=== PATIENT | male | born 1980 | race African-American/Black ===

== ENCOUNTER 2017-12-02 18:25 | Emergency (ER) | payer BC ==
[2017-12-02] MEDS ORDERED: NORMAL SALINE 1000 ML 1,000 ML IV PRN (18:40)
[2017-12-02] MEDS ORDERED: LORAZEPAM INJ 2 MG/1 ML VIAL IV ONE (18:41)
[2017-12-02] MEDS ORDERED: LEVETIRACETAM 1500 MG/NACL-ISO 1,500 MG/100 ML RTUPB IV ONE (18:41)
--- NOTE | 2017-12-02 18:43 | ER Document Report ---
ED General - General Chief Complaint: Seizure Stated Complaint: POSSIBLE SEIZURE Time Seen by Provider: 12/02/17 18:32 Mode of Arrival: Medic Information source: Patient Notes: This is a 37-year-old man with a history of TBI with seizures, hypertension, diabetes who is brought to the ER after 2 seizures while he was at a friend's house. Patient states he has been out of his Keppra for 3 days. He denies any fever, chills, recent illnesses. He denies abdominal pain, chest pain or dysuria. TRAVEL OUTSIDE OF THE [place] IN LAST 30 DAYS: No - HPI Onset: Just prior to arrival Onset/Duration: Gradual Quality of pain: No pain Severity: None Pain Level: Denies Associated symptoms: denies: Chest pain, Fever, Shortness of breath Exacerbated by: Denies Relieved by: Denies Similar symptoms previously: Yes Recently seen / treated by doctor: No - Related Data Allergies/Adverse Reactions: petrolatum,white [From Petroleum Jelly] Allergy (Verified 11/02/15 09:28) Past Medical History - General Information source: Patient - Social History Smoking Status: Never Smoker Cigarette use (# per day): No Chew tobacco use (# tins/day): No Frequency of alcohol use: None Drug Abuse: Marijuana Lives with: Family Family History: DM. denies: Arthritis, CAD, CVA, Hyperlipidemia, Hypertension, Malignancy, Thyroid Disfunction - Past Medical History Cardiac Medical History: Reports: Hx Hypertension Pulmonary Medical History: Reports: Hx Asthma Neurological Medical History: Reports: Hx Seizures Endocrine Medical History: Reports: Hx Diabetes Mellitus Type 2 Psychiatric Medical History: Reports: Hx Depression - Immunizations Hx Diphtheria, Pertussis, Tetanus Vaccination: Yes Review of Systems - Review of Systems Notes: Review of systems: Constitutional: Denies fever, chills. EENT: Denies ear pain, sinus tenderness, throat pain, throat swelling. Cardiovascular: Denies chest pain, palpitations, dyspnea or edema. Respiratory: Denies wheezing, cough, hemoptysis. Abdomen: Denies abdominal pain, nausea, vomiting, diarrhea. Denies BRBPR or melena. Genitourinary: Denies dysuria, pyuria, hematuria, flank pain. Musculoskeletal: denies joint pain or swelling, denies back pain. Neurologic: See H&P Skin: Denies rash, lesions. Physical Exam - Vital signs Vitals: Temp 98.6 F 12/02/17 18:39 Notes: Physical exam: GENERAL: 37-year-old man, alert and oriented 3, no acute distress HEAD: Atraumatic, normocephalic. EYES: Pupils equal round and reactive to light, extraocular movements intact, sclera anicteric, conjunctiva are normal. ENT: TMs normal, nares patent, oropharynx clear without exudates. Moist mucous membranes. NECK: Normal range of motion, supple without obvious mass or JVD. LUNGS: Breath sounds clear to auscultation bilaterally and equal. No wheezes rales or rhonchi. HEART: Regular rate and rhythm without murmurs, rubs or gallops. ABDOMEN: Soft, normoactive bowel sounds. No tenderness to palpation. No guarding, no rebound. No masses appreciated. EXTREMITIES: Normal range of motion, no pitting or edema. No clubbing or cyanosis. NEUROLOGICAL: Cranial nerves II through XII grossly intact. Normal speech, moving all extremities. PSYCH: Normal mood, normal affect. SKIN: Warm, Dry, normal turgor, no rashes or lesions noted. Course - Re-evaluation Re-evalutation: 12/02/17 23:13 Patient observed several hours. He is remained stable. His mother and state that he did have an absence type seizure while he was not in the room. The patient looks perfectly fine now. He was given Ativan initially on arrival. He was given a load of IV Keppra. The patient's labs look very good. I gave him some oral Keppra to take home with him for the morning and I will give him a prescription. I will also give him a list of doctors affiliated with this hospital to follow-up with. - Vital Signs Vital signs: Temp Pulse Resp BP Pulse Ox 98.6 F 8 L 134/87 H 99 12/02/17 18:39 12/02/17 22:30 12/02/17 22:31 12/02/17 22:31 - Laboratory Result Diagrams: 12/02/17 18:35 12/02/17 18:35 Laboratory results interpreted by me: 18 12/02/17 18:35 18:35 RBC 5.59 H RDW 14.6 H Carbon Dioxide 18 L Albumin 5.1 H Discharge - Discharge Clinical Impression: Seizure disorder Condition: Stable Disposition: HOME, SELF-CARE Instructions: Seizure, Known Epileptic ([facility]) Additional Instructions: As we discussed, your electrolytes and kidney function tests were normal. I would like you to take the 1 g of Keppra in the morning. 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 Continue all other medicines. Return to the ER for any problems per If you are unable to follow-up with your primary care doctor, you can call one of the primary care doctors below that are affiliated with the hospital. Primary Care Doctor's affiliated with [facility]: Dr. David Haas [address], [place] [address] [phone] Dr Crum Address: [address] [place] [address] , [place] [address] Dr Villavicencio Address: [address] [place] [address] [place] [address] Prescriptions: Levetiracetam [Keppra 500 mg Tablet] 1,000 mg PO Q12 #60 tablet Referrals: DIPTI DO MD [Primary Care Provider] - Follow up as needed
[2017-12-02] MEDS ORDERED: SODIUM CHLORIDE IV ONE (18:57)
[2017-12-02] MEDS ORDERED: LEVETIRACETAM IV ONE (18:57)
[2017-12-02] MEDS ORDERED: [UNRECOGNIZED DRUG - OTHER] IV ONE (18:57)
[2017-12-02 19:09] LABS: ABSOLUTE EOSINOPHILS # (AUTO) 0.1 10^3/uL (0.0-0.6); ABSOLUTE LYMPHOCYTES (AUTO) 2.7 10^3/uL (0.5-4.7); ABSOLUTE MONOCYTES (AUTO) 0.6 10^3/uL (0.1-1.4); ABSOLUTE NEUT (AUTO) 5.4 10^3/uL (1.7-8.2); BASOPHILS % (AUTO) 0.4 % (0-2); HEMATOCRIT 45.8 % (37.9-51.0); HEMOGLOBIN 15.1 g/dL (13.5-17.0); LYMPHOCYTES % (AUTO) 30.5 % (13-45); MEAN CORPUSCULAR VOLUME 82 fl (80-97); MONOCYTES % (AUTO) 6.7 % (3-13); PLATELET COUNT 240 10^3/uL (150-450); RED BLOOD COUNT 5.59 10^6/uL (4.35-5.55); RED CELL DISTRIBUTION WIDTH 14.6 % (11.5-14.0); SEGMENTED NEUTROPHILS % (AUTO) 61.4 % (42-78); TOTAL CELLS COUNTED % (AUTO) 100 %; WHITE BLOOD COUNT 8.7 10^3/uL (4.0-10.5)
[2017-12-02] MEDS ORDERED: LEVETIRACETAM 1000 MG/NACL-ISO 1,000 MG/100 ML RTUPB IV ONE (19:15)
[2017-12-02 19:31] LABS: ALANINE AMINOTRANSFERASE 30 U/L (21-72); ALBUMIN 5.1 g/dL (3.5-5.0); ALKALINE PHOSPHATASE 49 U/L (38-126); ASPARTATE AMINO TRANSFERASE 26 U/L (17-59); BILIRUBIN,DIRECT 0.3 mg/dL (0.0-0.4); BILIRUBIN,TOTAL 0.3 mg/dL (0.2-1.3); BLOOD UREA NITROGEN 12 mg/dL (7-20); CALCIUM 10.2 mg/dL (8.4-10.2); CARBON DIOXIDE 18 mmol/L (22-30); CHLORIDE 102 mmol/L (98-107); GLUCOSE 108 mg/dL (75-110); POTASSIUM 4.4 mmol/L (3.6-5.0); TOTAL PROTEIN 8.1 g/dL (6.3-8.2)
[2017-12-02 19:38] LABS: ANION GAP 19 (5-19); SODIUM 139.2 mmol/L (137-145)
[2017-12-02] MEDS ORDERED: LEVETIRACETAM 500 MG TABLET PO ONE (22:27)
[2017-12-02 22:50] VITALS: BP 134/87
== END 2017-12-02 23:11 | disposition home or self-care (01) ==
LOC: ER 18:25
DX: G40.909 Epilepsy, unspecified, not intractable, without status epilepticus (principal); T42.6X6A Underdosing of other antiepileptic and sedative-hypnotic drugs, initial encounter; Z91.128 Patient's intentional underdosing of medication regimen for other reason; Z91.14 Patient's other noncompliance with medication regimen; I10 Essential (primary) hypertension; E11.9 Type 2 diabetes mellitus without complications; Z87.820 Personal history of traumatic brain injury; J45.909 Unspecified asthma, uncomplicated
CPT/HCPCS: 99284; 96361; 96374; 96375; 36415; 85025; 80053; J2060; J7030; J1953

== ENCOUNTER 2018-08-08 15:26 | Emergency (ER) | payer BC ==
[2018-08-08] MEDS ORDERED: LORAZEPAM INJ 2 MG/1 ML VIAL IV ONE (15:35)
--- NOTE | 2018-08-08 15:44 | ER Document Report ---
ED Seizure - General Stated Complaint: POSSIBLE SEIZURE Time Seen by Provider: 08/08/18 15:34 Mode of Arrival: Medic Information source: Relative Cannot obtain history due to: Other - Patient actively having seizure Notes: Patient presents with EMS after being called for a seizure that occurred around 2 PM. Patient had just seen his primary doctor for routine follow-up. Patient does have a history of seizures and did report to the paramedics that he had been compliant with his medications. Patient takes Keppra 500 mg orally twice a day per his girlfriend. Patient is presently having a grand mal seizure that lasted about 20 seconds. - HPI Patient complains to provider of: History of seizures Current seizure medications: Keppra Preceding symptoms/context: denies: Recent illness/fever, Missed dose of meds Character of seizure: Complete loss/conscious, Generalized shaking Injuries: Bit tongue Associated Symptoms: None - Related Data Allergies/Adverse Reactions: petrolatum,white [From Petroleum Jelly] Allergy (Verified 11/02/15 09:28) Past Medical History - General Information source: Patient - Social History Smoking Status: Current Every Day Smoker Smoking Education Provided: Yes Frequency of alcohol use: None Drug Abuse: Marijuana Lives with: Spouse/Significant other Family History: DM. denies: Arthritis, CAD, CVA, Hyperlipidemia, Hypertension, Malignancy, Thyroid Disfunction Pulmonary Medical History: Reports: Hx Asthma Neurological Medical History: Reports: Hx Seizures Endocrine Medical History: Reports: Hx Diabetes Mellitus Type 2 Renal/ Medical History: Denies: Hx Peritoneal Dialysis Psychiatric Medical History: Reports: Hx Depression Surgical Hx: Negative - Immunizations Hx Diphtheria, Pertussis, Tetanus Vaccination: Yes Review of Systems - Review of Systems -: Yes ROS unobtainable due to patient's medical condition Constitutional: denies: Fever, Recent illness Physical Exam - Vital signs Vitals: Resp Pulse Ox 25 H 98 08/08/18 15:34 08/08/18 15:34 - General Notes: Patient actively seizing, lasted approximately nasal 15-20 seconds - HEENT Head: Normocephalic, Atraumatic Eyes: Normal Neck: Normal, Supple - Respiratory Respiratory status: No respiratory distress Chest status: Nontender Breath sounds: Normal Chest palpation: Normal - Cardiovascular Rhythm: Tachycardia Heart sounds: S1 appreciated, S2 appreciated Murmur: No - Abdominal Inspection: Normal Distension: No distension Bowel sounds: Normal - Extremities General upper extremity: Normal inspection, Normal ROM General lower extremity: Normal inspection, Normal ROM - Neurological Neuro grossly intact: Yes Cognition: Normal Williamson Coma Scale Eye Opening: Spontaneous Williamson Coma Scale Verbal: Oriented Juliette Coma Scale Motor: Obeys Commands Williamson Coma Scale Total: 15 - Psychological Associated symptoms: Normal affect, Normal mood - Skin Skin Temperature: Warm Skin Color: Normal Course - Re-evaluation Re-evalutation: 08/08/18 15:52 Patient awake, vomiting, additional medication ordered this time 08/08/18 16:[address] Cronin regarding pt presentation, reviewed diagnostics. Recommends giving a liter of half-normal saline wide open in addition to increasing dose of Keppra. Agrees with discharge plan of care after IV fluid infusion. 08/08/18 18:53 Patient resting with eyes closed, arouses easily to voice. No additional seizure activity noted. IV fluid infusion completed. Discussed plan of care with patient and family member. Patient encouraged to follow-up with primary doctor as well as neurology for further evaluation. - Vital Signs Vital signs: Temp Pulse Resp BP Pulse Ox 97.6 F 21 H 130/79 H 98 08/08/18 19:32 08/08/18 19:32 08/08/18 19:32 08/08/18 19:32 - Laboratory Result Diagrams: 08/08/18 15:35 08/08/18 15:35 Laboratory results interpreted by me: 08/08/18 08/08/18 08/08/18 15:35 15:35 15:35 WBC 15.3 H RBC 5.80 H MCHC 31.3 L RDW 14.3 H Absolute Lymphocytes 6.2 H Sodium 152.1 H Carbon Dioxide 11 L Anion Gap 38 H Creatinine 1.38 H Est GFR (Non-Af Amer) 58 L Glucose 222 H POC Glucose 200 H Calcium 11.4 H Labs- Entire Visit 08/08/18 08/08/18 08/08/18 15:35 15:35 15:35 WBC 15.3 H RBC 5.80 H Hgb 15.8 Hct 50.5 MCV 87 MCH 27.2 MCHC 31.3 L RDW 14.3 H Plt Count 301 Seg Neutrophils % 52.0 Lymphocytes % 40.4 Monocytes % 6.4 Eosinophils % 0.6 Basophils % 0.6 Absolute Neutrophils 8.0 Absolute Lymphocytes 6.2 H Absolute Monocytes 1.0 Absolute Eosinophils 0.1 Absolute Basophils 0.1 Sodium 152.1 H Potassium 4.0 Chloride 103 Carbon Dioxide 11 L Anion Gap 38 H BUN 12 Creatinine 1.38 H Est GFR ( Amer) > 60 Est GFR (Non-Af Amer) 58 L Glucose 222 H POC Glucose 200 H Calcium 11.4 H Discharge - Discharge Clinical Impression: Seizure Condition: Stable Disposition: HOME, SELF-CARE Instructions: Intravenous (IV) Fluids ([facility]), Seizure, Known Epileptic ([facility]) Additional Instructions: Return immediately for any new or worsening symptoms Followup with your primary care provider, call tomorrow to make a followup appointment Follow-up with a neurologist for further evaluation, call tomorrow for an appointment Your dose of Keppra will now be 1000 mg twice a day. Prescriptions: Levetiracetam [Keppra] 1,000 mg PO BID #60 tablet Forms: Smoking Cessation Education Referrals: DIPTI DO MD [Primary Care Provider] - Follow up tomorrow PREMA WELLINGTON MD [NO LOCAL MD] - Follow up tomorrow
[2018-08-08 15:50] LABS: ABSOLUTE BASOPHILS # (AUTO) 0.1 10^3/uL (0.0-0.2); ABSOLUTE EOSINOPHILS # (AUTO) 0.1 10^3/uL (0.0-0.6); ABSOLUTE LYMPHOCYTES (AUTO) 6.2 10^3/uL (0.5-4.7); BASOPHILS % (AUTO) 0.6 % (0-2); EOSINOPHILS % (AUTO) 0.6 % (0-6); HEMATOCRIT 50.5 % (37.9-51.0); HEMOGLOBIN 15.8 g/dL (13.5-17.0); LYMPHOCYTES % (AUTO) 40.4 % (13-45); MEAN CORPUSCULAR HEMOGLOBIN 27.2 pg (27.0-33.4); MEAN CORPUSCULAR HGB CONC 31.3 g/dL (32.0-36.0); MEAN CORPUSCULAR VOLUME 87 fl (80-97); MONOCYTES % (AUTO) 6.4 % (3-13); PLATELET COUNT 301 10^3/uL (150-450); RED CELL DISTRIBUTION WIDTH 14.3 % (11.5-14.0); TOTAL CELLS COUNTED % (AUTO) 100 %; WHITE BLOOD COUNT 15.3 10^3/uL (4.0-10.5)
[2018-08-08] MEDS ORDERED: ONDANSETRON HCL INJ/PF 4 MG/2 ML SDV IV ONE (15:51)
[2018-08-08] MEDS ORDERED: NORMAL SALINE 1000 ML 1,000 ML IV ONE (15:51)
[2018-08-08] MEDS ORDERED: LEVETIRACETAM 500 MG/NACL-ISO 500 MG/100 ML RTUPB IV ONE (15:52)
[2018-08-08 16:13] LABS: BLOOD UREA NITROGEN 12 mg/dL (7-20); CALCIUM 11.4 mg/dL (8.4-10.2); CARBON DIOXIDE 11 mmol/L (22-30); CHLORIDE 103 mmol/L (98-107); GLUCOSE 222 mg/dL (75-110)
[2018-08-08 16:19] LABS: SODIUM 152.1 mmol/L (137-145)
[2018-08-08 16:21] LABS: ANION GAP 38 (5-19)
[2018-08-08] MEDS ORDERED: 1/2 NORMAL SALINE 1,000 ML IV ONE (16:49)
[2018-08-08 19:47] VITALS: BP 130/79
--- NOTE | 2018-08-08 21:47 | EKG REPORT ---
SEVERITY:- ABNORMAL ECG - SINUS TACHYCARDIA BIATRIAL ABNORMALITIES BORDERLINE T WAVE ABNORMALITIES : Confirmed by: Partha Hartmann 08-Aug-2018 21:47:35
== END 2018-08-08 19:47 | disposition home or self-care (01) ==
LOC: ER 15:26
DX: R56.9 Unspecified convulsions (principal); Z88.8 Allergy status to other drugs, medicaments and biological substances; F17.200 Nicotine dependence, unspecified, uncomplicated; R40.2412 Glasgow coma scale score 13-15, at arrival to emergency department; E11.9 Type 2 diabetes mellitus without complications; F32.9 Major depressive disorder, single episode, unspecified
CPT/HCPCS: 93005; 99285; 96361; 96374; 96375; 36415; 80177; 82962; 85025; 80048; 93010; J2060; J2405; J7030; J1953